=== PATIENT | female | born 1990 | race Asian ===

== ENCOUNTER 2023-10-01 11:50 | Observation (INO) | payer BC ==
[2023-10-01 12:24] LABS: BASOPHILS PERCENT AUTO 0.2 % (0.2-1.2); EOSINOPHILS ABSOLUTE AUTO 0.2 x10^3/uL (0.0-0.5); EOSINOPHILS PERCENT AUTO 0.8 % (0.0-4.0); HEMATOCRIT 43.7 % (33.0-47.0); HEMOGLOBIN 14.6 g/dL (12.0-16.0); IMMATURE GRAN ABSOLUTE AUTO 0.03 x10^3/uL (0.00-0.07); LYMPHOCYTES ABSOLUTE AUTO 1.7 x10^3/uL (1.0-4.8); LYMPHOCYTES PERCENT AUTO 9.1 % (25.0-50.0); MEAN CORPUSCULAR HEMOGLOBIN 29.1 pg (26.0-32.0); MEAN CORPUSCULAR HGB CONC 33.4 g/dL (32.0-36.0); MEAN CORPUSCULAR VOLUME 87.1 fL (78.0-93.0); MONOCYTES ABSOLUTE AUTO 0.9 x10^3/uL (0.0-0.8); MONOCYTES PERCENT AUTO 4.7 % (2.0-11.0); NEUTROPHILS ABSOLUTE AUTO 16.1 x10^3/uL (1.8-7.7); RED BLOOD CELL COUNT 5.02 x10^6/uL (4.00-5.50); WHITE BLOOD CELL COUNT,WBC 18.9 x10^3/uL (4.0-10.0)
[2023-10-01] MEDS: Ondansetron 4 MG/2 ML SDV IVPUSH ONE (12:33)
[2023-10-01] MEDS: Ketorolac 15 MG/ML SDV IVPUSH ONE (12:33)
[2023-10-01] MEDS: Sodium Chloride 0.9% 1,000 ML IV ONE (12:34)
[2023-10-01 12:44] LABS: BLOOD UREA NITROGEN,BUN 10 mg/dL (7-18); CALCIUM 9.4 mg/dL (8.5-10.1); CARBON DIOXIDE,CO2 26 mmol/L (21-32); CHLORIDE,CL 98 mmol/L (98-107); CREATININE 0.7 mg/dL (0.55-1.02); GLUCOSE RANDOM 139 mg/dL (70-99); SODIUM,NA 136 mmol/L (136-145)
[2023-10-01 12:45] LABS: ESTIMATED GFR 117 mL/min (>=60)
[2023-10-01 13:00] LABS: PLATELET COUNT,PLT 246 x10^3/uL (130-400)
[2023-10-01 13:01] LABS: CORONAVIRUS COVID-19 NAA NEGATIVE (NEGATIVE); INFLUENZA A NAA NEGATIVE (NEGATIVE); INFLUENZA B NAA NEGATIVE (NEGATIVE); RESPIRATORY SYNCYTIAL VIR NAA NEGATIVE (NEGATIVE)
[2023-10-01] MEDS: cefTRIAXone 2 GM Vial IVPUSH ONE (13:02)
[2023-10-01] MEDS: Azithromycin 500 MG in Sodium Chloride 0.9% 250 ML IV ONE (13:02)
[2023-10-01] MEDS: Albuterol/Ipratropium 3.0-0.5 MG/3 ML Neb Soln NEB ONE (14:29)
[2023-10-01] MEDS ORDERED: Ondansetron 4 MG Tab.DIS PO PRN (14:31)
[2023-10-01] MEDS: Acetaminophen 325 MG Tab PO PRN (14:46)
[2023-10-01] MEDS: Lactated Ringers 1,000 ML IV SCH ×2 (16:14→17:19)
[2023-10-01] MEDS: Acetaminophen 500 MG Tab PO ONE (16:36)
[2023-10-01] MEDS: Sodium Chloride 0.9% 1,500 ML IV ONE (16:36)
[2023-10-01] MEDS: Albuterol/Ipratropium 3.0-0.5 MG/3 ML Neb Soln NEB PRN (18:21)
[2023-10-01] MEDS: Ketorolac 15 MG/ML SDV IVPUSH PRN (18:37)
[2023-10-01 19:18] LABS: APPEARANCE,URINE CLEAR (CLEAR); BILIRUBIN,URINE NEGATIVE (NEGATIVE); COLOR,URINE YELLOW (YELLOW); GLUCOSE,URINE NEGATIVE (NEGATIVE); KETONES,URINE NEGATIVE (NEGATIVE); LEUKOCYTE ESTERASE,URINE NEGATIVE (NEGATIVE); NITRITE,URINE NEGATIVE (NEGATIVE); OCCULT BLOOD,URINE NEGATIVE (NEGATIVE); PROTEIN,URINE NEGATIVE (NEGATIVE); UROBILINOGEN,URINE 0.2 EU/dL (0.2)
[2023-10-01 19:25] LABS: RBC,URINE 0-5 /HPF (NOT SEEN); WBC,URINE 0-5 /HPF (NOT SEEN)
[2023-10-01 19:26] LABS: BACTERIA,URINE OCCASIONAL /HPF (NOT SEEN); SQUAMOUS EPITHELIAL CELLS,UR OCCASIONAL /HPF (NOT SEEN)
[2023-10-01] MEDS: Metoprolol Tartrate 25 MG Tab PO SCH (22:09)
[2023-10-02 07:00] LABS: BASOPHILS PERCENT AUTO 0.2 % (0.2-1.2); EOSINOPHILS ABSOLUTE AUTO 0.1 x10^3/uL (0.0-0.5); EOSINOPHILS PERCENT AUTO 0.6 % (0.0-4.0); HEMOGLOBIN 12.7 g/dL (12.0-16.0); IMMATURE GRAN ABSOLUTE AUTO 0.04 x10^3/uL (0.00-0.07); LYMPHOCYTES ABSOLUTE AUTO 3.4 x10^3/uL (1.0-4.8); MEAN CORPUSCULAR HEMOGLOBIN 29.4 pg (26.0-32.0); MEAN CORPUSCULAR HGB CONC 33.4 g/dL (32.0-36.0); MONOCYTES PERCENT AUTO 5.6 % (2.0-11.0); NEUTROPHILS ABSOLUTE AUTO 13.2 x10^3/uL (1.8-7.7); NEUTROPHILS PERCENT AUTO 74.4 % (50.0-80.0); PLATELET COUNT,PLT 222 x10^3/uL (130-400); RED BLOOD CELL COUNT 4.32 x10^6/uL (4.00-5.50)
[2023-10-02 07:29] LABS: WHITE BLOOD CELL COUNT,WBC 17.8 x10^3/uL (4.0-10.0)
[2023-10-02] MEDS: Losartan 50 MG Tab PO SCH (08:31)
[2023-10-02] MEDS: amLODIPine 5 MG Tab PO SCH (08:35)
[2023-10-02] MEDS: Azithromycin 500 MG in Sodium Chloride 0.9% 250 ML IV SCH (08:54)
[2023-10-02] MEDS: cefTRIAXone 2 GM Vial IVPUSH SCH (10:29)
== END 2023-10-02 11:00 | disposition home or self-care (01) ==
LOC: VM.ED 11:50 → VM.MS 13:57
PROVIDERS: ADMIT Physician Assistant Medical; ATTEND Physician Assistant Medical
DX: J18.9 Pneumonia, unspecified organism (principal); A41.9 Sepsis, unspecified organism; I10 Essential (primary) hypertension
CPT/HCPCS: 0241U; 36415; 71046; 80048; 81001; 83605; 85025; 87040; 93005; 94640; 96361; 96365; 96366; 96375; 96376; 99285; A9270; G0378; J0456; J0696; J1885; J2405; J7030; J7050; J7120; 93010; 99223; 99238; J7620-GY